=== PATIENT | male | born 1965 | race Caucasian/White ===

== ENCOUNTER → 2021-12-19 | Outpatient (CLI) | payer OTHER ==
[~2021-12-19] MED LIST: GABAPENTIN400 MG PO; LIPITOR TAB 1010 MG PO; OXYCODONE HCL15 MG PO; OXYMORPHONE HCL15 MG PO; VITAMIN D1000 UNIT PO; ZYRTEC10 MG PO
== END ==
LOC: SLEEP 11:03
DX: G47.33 Obstructive sleep apnea (adult) (pediatric) (principal); R06.83 Snoring
CPT/HCPCS: 95810